=== PATIENT | male | born 1990 | race Caucasian/White ===

== ENCOUNTER 2025-02-07 08:32 | Observation (INO) | payer OTHER ==
[~2025-02-07] VITALS: Ht 182.9 cm; Wt 260.0 kg
[~2025-02-07 08:32] MED LIST: CRUTCH3 USE; HYDACE5 PO; MAGNESIUM POTASSIUM; MELA3 PO; MULVITMIND PO; OLAN10 PO
[2025-02-07] MEDS ORDERED: LORazepam 2 MG/ML 1ML Injection IV ONE ×3 (09:15→10:50)
[2025-02-07] MEDS ORDERED: NS 1,000 ML IV SCH ×2 (09:15→10:45)
[2025-02-07] MEDS ORDERED: Magnesium Sulf 2 GM/Water 50ML 50 ML IV ONE (09:45)
[2025-02-07 10:17] LABS: BASOPHILS ABSOLUTE AUTO 0.02 K/mm3 (0.00-0.23); BASOPHILS PERCENT AUTO 0 % (0-2); EOSINOPHILS PERCENT AUTO 0 % (0-6); Hematocrit 46.9 % (37.0-53.0); Hemoglobin 17.2 g/dL (13.5-17.5); IMMATURE GRAN ABSOLUTE AUTO 0.03 K/mm3 (0.00-0.10); IMMATURE GRAN PERCENT AUTO 0 % (0-1); LYMPHOCYTES ABSOLUTE AUTO 1.17 K/mm3 (0.84-5.20); LYMPHOCYTES PERCENT AUTO 13 % (21-46); MONOCYTES ABSOLUTE AUTO 0.51 K/mm3 (0.16-1.47); MONOCYTES PERCENT AUTO 6 % (4-13); Mean Corpuscular HGB 31.7 pg (26.0-34.0); Mean Corpuscular HGB Conc 36.7 g/dL (31.5-36.5); Mean Corpuscular Volume 86 fL (80-100); NEUTROPHILS ABSOLUTE AUTO 7.62 K/mm3 (1.96-9.15); NEUTROPHILS PERCENT AUTO 82 % (41-73); Platelet Count 428 K/mm3 (150-400); RDW Coefficient Variation 12.8 % (11.7-14.2); Red Blood Cell Count 5.43 M/mm3 (4.30-5.90); White Blood Cell Count 9.35 K/mm3 (4.00-11.30)
[2025-02-07 10:31] LABS: Salicylate <1.7 mg/dL (2.8-20.0)
[2025-02-07 10:36] LABS: Alanine Aminotransfer (ALT/SGP 54 U/L (12-78); Albumin, Blood 5.2 g/dL (3.4-5.0); Albumin/Globulin Ratio 1.9 (0.8-1.8); Alk Phos 85 U/L (50-136); Anion Gap 13 mmol/L (3-11); Aspartate Aminotrans (AST/SGOT 21 U/L (12-37); Bilirubin, Total 0.8 mg/dL (0.1-1.0); Blood Urea Nitrogen 14 mg/dL (8-24); Bun/Creatinine Ratio 13.9 (12.0-20.0); CO2, Blood 19 mmol/L (21-32); Calcium, Blood 8.9 mg/dL (8.5-10.1); Chloride, Blood 107 mmol/L (98-108); Creatinine, Blood 1.01 mg/dL (0.60-1.20); Globulin, Blood 2.8 g/dL (2.2-4.0); Glomerular Filtration Rate 100 (60-); Glucose, Blood 183 mg/dL (70-99); Potassium, Blood 3.4 mmol/L (3.5-5.5); Sodium, Blood 136 mmol/L (136-145)
[2025-02-07 10:37] LABS: Acetaminophen, Random <2.0 ug/mL (10.0-30.0)
[2025-02-07 13:28] VITALS: BP 140/79
[2025-02-07] MEDS ORDERED: LORazepam 2 MG/ML 1ML Injection IV PRN ×2 (13:30→14:00)
[2025-02-07] MEDS ORDERED: Lactated Ringer's 1,000 ML IV SCH ×2 (13:35)
[2025-02-07 14:44] LABS: BASOPHILS ABSOLUTE AUTO 0.02 K/mm3 (0.00-0.23); BASOPHILS PERCENT AUTO 0 % (0-2); EOSINOPHILS PERCENT AUTO 0 % (0-6); Hematocrit 42.7 % (37.0-53.0); Hemoglobin 15.3 g/dL (13.5-17.5); IMMATURE GRAN ABSOLUTE AUTO 0.03 K/mm3 (0.00-0.10); IMMATURE GRAN PERCENT AUTO 0 % (0-1); LYMPHOCYTES PERCENT AUTO 17 % (21-46); MONOCYTES ABSOLUTE AUTO 0.72 K/mm3 (0.16-1.47); MONOCYTES PERCENT AUTO 6 % (4-13); Mean Corpuscular HGB 31.5 pg (26.0-34.0); Mean Corpuscular HGB Conc 35.8 g/dL (31.5-36.5); Mean Corpuscular Volume 88 fL (80-100); NEUTROPHILS ABSOLUTE AUTO 8.54 K/mm3 (1.96-9.15); NEUTROPHILS PERCENT AUTO 76 % (41-73); Platelet Count 350 K/mm3 (150-400); RDW Standard Deviation 41.6 fL (35.1-46.3); Red Blood Cell Count 4.86 M/mm3 (4.30-5.90); White Blood Cell Count 11.21 K/mm3 (4.00-11.30)
[2025-02-07 15:06] LABS: Albumin, Blood 4.5 g/dL (3.4-5.0); Anion Gap 9 mmol/L (3-11); Blood Urea Nitrogen 11 mg/dL (8-24); Bun/Creatinine Ratio 13.2 (12.0-20.0); CO2, Blood 22 mmol/L (21-32); Calcium, Blood 7.9 mg/dL (8.5-10.1); Chloride, Blood 109 mmol/L (98-108); Creatinine, Blood 0.83 mg/dL (0.60-1.20); Glomerular Filtration Rate 118 (60-); Glucose, Blood 92 mg/dL (70-99); Magnesium, Blood 3.2 mg/dL (1.6-2.4); Phosphorus, Blood 2.1 mg/dL (2.5-4.9); Potassium, Blood 3.9 mmol/L (3.5-5.5); Sodium, Blood 136 mmol/L (136-145)
[2025-02-07 17:08] VITALS: BP 120/74
--- NOTE | 2025-02-07 18:07 | NUR ---
SHIFT SUMMARY: PT WAS AN ADMIT FROM ER TODAY. A/OX1-2 PT IS AWARE OF SELF, AND SOMETIMES KNOWS HE IS IN THE HOSPITAL. PT PRESENTED WITH PUPILS MEASURING 4MM THAT WERE LARGE AND DILATED. WHEN SPEAKING PT TENDS TO HAVE A FLIGHT OF IDEAS. PT IS ON TELE, HAS REMAINED SINUS TACH 110'S. PT HAS BEEN RETAINING URINE, POST VOID BLADDER SCAN SHOWED MORE THAN 600ML URINE IN BLADDER. PER HOSPITAL PROTOCOL, EDUCATED PT ON THE NEED FOR CATHETERIZATION.THIS NEWS UPSET THE PT AND HE BRISKLY WALKED OUT OF HIS ROOM AND AROUND THE UNIT, PT IS A SBA DUE TO UNSTEADY GAIT. ELIDA RN WAS ABLE TO ASSIST PT BACK TO HIS ROOM AND REDUCE HIS ANXIETY. PRIMARY RN NOTIFIED MD OF RETENTION. MD WAS ALSO NOTIFIED OF PT PRIOR SCHIZOPHRENIA MEDICATION AND WAS ABLE TO ORDER IT.PT HAS MOM IN ROOM, SHE IS TAKING TURNS WITH DAD TO KEEP THE PT CALM AND REASURED. NO RESPIRATORY CONCERNS AT THIS TIME. PT HAS SCATTERED SCABBING ON HANDS FROM WORKING ON HIS CAR, AND GLUE ON HIS LEFT THIGH. NO PRESSURE INJURIES PRESENT. WILL REPORT TO ONCOMING RN.
[2025-02-07 20:36] VITALS: BP 135/80
[2025-02-07] MEDS ORDERED: OLANZapine 5 MG Tab PO SCH (21:00)
[2025-02-08] VITALS: BP 125/79
[2025-02-08 04:00] VITALS: BP 127/82
--- NOTE | 2025-02-08 04:10 | NUR ---
SHIFT EVENT LAB ATTEMPTED TO PULL BLOOD FROM PT. PT BECAME AGITATED AND REFUSED BLOOD DRAW. THIS NURSE THEN GAVE DOSE OF ATIVAN THROUGH IV. THIS NURSE WENT INTO ROOM SHORTLY AFTER TO REEVALUATE MEDICATION AFFECTS, PT WAS IN THE BATHROOM AT THE TIME. MOTHER OF PT WENT INTO BATHROOM TO CHECK ON PT AND DISCOVERED PT ATTEMPTING TO PULL OUT IV. AFTER DISCUSSING WITH PT REASONS TO KEEP IV, PT REMAINS DETERMINED TO PULL IV OUT. PTs MENTAL STATUS REEVALUATED AT THIS TIME AND HE IS FOUND TO BE A&O X 4. THIS NURSE ASSISTED PT WITH PULLING IV TO TRY AND PREVENT PT FROM INJURING THEMSELVES. PT ALSO SEEMS DETERMINED TO LEAVE HOSPITAL AT THIS TIME. CALL HAS BEEN PLACED TO PHYSICIAN TO DISCUSS NEXT STEPS AND TO ASK PHYSICIAN TO SPEAK TO PT BECAUSE OF REASON FOR PTs ADMIT TO HOSPITAL. THIS NURSE HAS NOT YET HEARD BACK FROM PHYSICIAN. WILL CONTINUE TO CALL.
--- NOTE | 2025-02-08 06:42 | NUR ---
SHIFT SUMMARY PT HAS TOLERATED NIGHT AND HAD IMPROVEMENTS TO A&O STATUS. PT DOES NOT WISH TO REMAIN HOSPITALIZED AT THIS TIME. PT IS CURRENTLY AGREEABLE TO STAYING UNTIL BEING DISCHARGED TODAY. PT EXPRESSES TO THIS NURSE THAT HE OTHERWISE WOULD LIKE TO LEAVE BUT AGREES TO STAY TO SPEAK WITH PHYSICIAN. WILL CONTINUE TO MONITOR UNTIL REPORT PASSED TO DAY SHIFT TEAM.
[2025-02-08 07:36] VITALS: BP 139/91
[2025-02-08] MEDS ORDERED: Enoxaparin 40 MG/0.4 ML SYR SC SCH (09:00)
[2025-02-08] MEDS ORDERED: OLAN10 PO (10:19)
[2025-02-08 10:30] VITALS: BP 108/95
--- NOTE | 2025-02-08 10:30 | NUR ---
SHIFT SUMMARY/ DISCHARGE NOTE: NO SIGNIFICANT EVENTS HAVE HAPPENED SINCE BEGINING OF SHIFT. PT SAT IN BED ALL MORNING AWAITING PROVIDER ASSESSMENT AND DISCHARGE. PT DISCHARGED TO HOME IN NO ACUTE DISTRESS. PT AND PARENTS GIVEN WRITTEN AND VERBAL DC INSTRUCTIONS AND WAS INSTRUCTED TO COME BACK TO THIS FACILITY IF SYMPTOMS WORSEN. PT DENIES ANY COMPLAINT, QUESTIONS OR CONCERS. BELONGINGS COLLECTED AND TAKEN HOME WITH WITH PT.
== END 2025-02-08 10:52 | disposition home or self-care (01) ==
LOC: ER 08:32 → ERHOLD 08:33 → PCU 13:30
PROVIDERS: Emergency Medicine; ADMIT Family Medicine
DX: T44.3X1A Poisoning by other parasympatholytics [anticholinergics and antimuscarinics] and spasmolytics, accidental (unintentional), initial encounter (principal); F20.9 Schizophrenia, unspecified; E87.6 Hypokalemia; Z87.891 Personal history of nicotine dependence
CPT/HCPCS: 36415; 51798; 80053; 80069; 82550; 83735; 84484; 85025; 93005; 93010; 96365; 96366; 96375; 96376; 99285-25; A9270; G0378; G0480; J2060; J3475; J7030; J7120